=== PATIENT | female | born 1980 | race African-American/Black ===

== ENCOUNTER 2017-03-05 18:58 | Emergency (ER) | payer OTHER ==
[~2017-03-05] VITALS: Ht 177.8 cm; Wt 81.6 kg
--- NOTE | 2017-03-05 18:58 | NUR ---
Patient to [facility] for evaluation. Report given to AYANNA LOCKHART.
[2017-03-05 19:00] VITALS: BP_SYST 136
--- NOTE | 2017-03-05 19:00 | NUR ---
Patient brought to ED by [facility] for medical clearance. CHP reports patient has history of DM. Upon assessment patient presents with a blood sugar of 458. Patient takes metformin and glipizide while at home. Patient a/o x 4. Appears aggitated on arrival. No pain reported. Vital signs within normal limits. Will continue to monitor.
--- NOTE | 2017-03-05 19:05 | NUR ---
ED MD Sullivan at bedside for medical evaluation.
[2017-03-05] MEDS ORDERED: NACL 0.9% 1,000 ML IV ONE ×3 (19:30→21:15)
--- NOTE | 2017-03-05 19:55 | NUR ---
ED MD Heller at bedside assessing patient.
--- NOTE | 2017-03-05 19:55 | NUR ---
Medicated per MD orders. IVF infusing with no s/s of infiltration at this time. Will continue to monitor
[2017-03-05 20:12] LABS: EOSINOPHILS # (AUTO) 0.2 K/uL (0.0-0.4); EOSINOPHILS % (AUTO) 3.3 % (0.0-4.0); HEMOGLOBIN 13.2 g/dL (12.0-16.0); MEAN CORPUSCULAR HEMOGLOBIN 26 pg (27-31); MEAN CORPUSCULAR HGB CONC 32 % (32-36); RED CELL DISTRIBUTION WIDTH 14.8 % (9.0-15.0)
[2017-03-05 20:16] LABS: BASOPHILS # (AUTO) 0.1 K/uL (0.0-0.2); BASOPHILS % (AUTO) 1.5 % (0.0-2.0); HEMATOCRIT 41.2 % (36-48); LYMPHOCYTES # (AUTO) 2.1 K/uL (1.0-5.5); MEAN CORPUSCULAR VOLUME 81 fL (79.0-98.0); MONOCYTES # (AUTO) 0.4 K/uL (0.0-1.0); MONOCYTES % (AUTO) 5.6 % (1.7-9.3); NEUTROPHILS # (AUTO) 4.3 K/uL (1.8-7.7); NEUTROPHILS % (AUTO) 59.6 % (40.0-70.0); PLATELET COUNT (AUTO) 394 K/uL (130-430); RED BLOOD CELL COUNT(AUTO) 5.08 MIL/uL (4.2-6.2); WHITE BLOOD COUNT (AUTO) 7.1 K/uL (4.8-10.8)
[2017-03-05 20:26] LABS: BILIRUBIN,URINE NEGATIVE (NEGATIVE); BLOOD, URINE NEGATIVE (NEGATIVE); CLARITY/URINE CLEAR (CLEAR); COLOR,URINE YELLOW (YELLOW); GLUCOSE,URINE 3+ (NEGATIVE); KETONES,URINE 1+ (NEGATIVE); LEUKOCYTE ESTERASE ,URINE NEGATIVE (NEGATIVE); NITRITE, URINE NEGATIVE (NEGATIVE); PROTEIN URINE NEGATIVE (NEGATIVE); UROBILINOGEN,URINE 0.2 (0.2-1.0)
[2017-03-05 20:29] LABS: CALCIUM 8.8 mg/dL (8.4-11.0); CREATININE 0.93 mg/dL (0.55-1.30); POTASSIUM 3.9 mmol/L (3.5-5.1)
[2017-03-05 20:32] LABS: INR 0.9 (0.8-1.2); PROTHROMBIN TIME 9.8 SECS (9.5-12.5)
[2017-03-05 20:38] LABS: TOTAL BILIRUBIN 0.3 mg/dL (0.0-1.0)
[2017-03-05 20:39] LABS: ALBUMIN 3.9 g/dL (3.4-4.8); AMYLASE 64 U/L (0-100); LIPASE 132 U/L (73-393); TOTAL PROTEIN, SERUM 8.3 g/dL (6.4-8.3)
[2017-03-05 20:40] LABS: BACTERIA,URINE FEW /HPF (None Seen); MUCUS,URINE None Seen /LPF (None Seen); RBC,URINE NONE SEEN /HPF (0-3)
[2017-03-05] MEDS ORDERED: INSULIN REGULAR, HUMAN 10 UNITS/0.1 ML INJ IVP ONE ×2 (21:00)
--- NOTE | 2017-03-05 22:20 | NUR ---
Blood sugar 342
--- NOTE | 2017-03-05 22:29 | NUR ---
Medicated per MD orders. IVF infusing with no s/s of infiltration at this time. Will continue to monitor
--- NOTE | 2017-03-05 22:45 | NUR ---
Ed MD Heller at bedside reassessing patient.
[2017-03-05 22:52] LABS: CANNABINOID, URINE POSITIVE (NEG <=50); METHAMPHETAMINES SCREEN,URINE POSITIVE (NEG <=500); URINE AMPHETAMINE POSITIVE (NEG <=500)
[2017-03-05 22:53] LABS: BARBITURATE, URINE NEGATIVE (NEG <=200); BENZODIAZEPINE, URINE NEGATIVE (NEG <=150); COCAINE, URINE NEGATIVE (NEG <=150); OPIATE, URINE NEGATIVE (NEG <=100); PHENCYCLIDINE SCREEN,URINE NEGATIVE (NEG <=25); UR TRICYCLIC ANTIDEPRESSANTS NEGATIVE (NEG <=300); URINE METHADONE NEGATIVE (NEG <=200); URINE OXYCODONE SCREEN NEGATIVE (NEG <=100); URINE PROPOXYPHENE SCREEN NEGATIVE (NEG <=300)
--- NOTE | 2017-03-05 23:05 | NUR ---
Blood sugar 224
[2017-03-05 23:11] VITALS: BP_SYST 144
--- NOTE | 2017-03-05 23:11 | NUR ---
Patient given written and verbal discharge instructions and verbalizes understanding. ER MD discussed with patient the results and treatment provided. Patient in stable condition. ID arm band removed. IV catheter removed intact and dressing applied, no active bleeding. No Rx given. Patient educated on pain management and to follow up with PMD. Pain Scale 0/10. Opportunity for questions provided and answered. Patient discharged in [facility] custody, ambulatory with handcuffs.
== END 2017-03-05 23:11 ==
LOC: SED 18:58
DX: E11.65 Type 2 diabetes mellitus with hyperglycemia (principal); E86.0 Dehydration
CPT/HCPCS: 36415; 71010; 80053; 80307; 81000; 82150; 83690; 84484; 85025; 85610; 85730; 93005; 96361; 96374; 99285; J1815; J7030

== ENCOUNTER 2017-03-06 03:15 | Emergency (ER) | payer OTHER ==
[~2017-03-06] VITALS: Ht 177.8 cm; Wt 81.6 kg
[2017-03-06 03:15] VITALS: BP_SYST 135
--- NOTE | 2017-03-06 03:15 | NUR ---
Patient to ER bed 4 to gown for evaluation. Side rails up. Report given to AYANNA MIRANDA.
--- NOTE | 2017-03-06 03:20 | NUR ---
Patient brought to ER by law enforcement for medical clearance. Patient was seen last evening in ER and medically cleared. Patient is brought back for evaluation of possible allergic reaction. Patient has swelling to both eyes, no hematoma noted. Patient states that since she left our ER she has not ate or drink anything. AAOx4, unlabored breathing, no respiratory distress noted, C/O pruritus, no signs of acute distress.
--- NOTE | 2017-03-06 03:27 | NUR ---
ER MD Heller at bedside for evaluation
--- NOTE | 2017-03-06 03:39 | NUR ---
Patient refuses to provide urine and refuses I&O catheter. ER MD Heller aware.
[2017-03-06] MEDS ORDERED: DIPHENHYDRAMINE INJ 50 MG/ML VIAL IVP ONE (03:45)
[2017-03-06] MEDS ORDERED: EPINEPHrine JECT 1 MG/10 ML SYR IVP ONE (03:45)
[2017-03-06] MEDS ORDERED: FAMOTIDINE PF 20 MG/2 ML VIAL IVP ONE (03:45)
--- NOTE | 2017-03-06 03:55 | NUR ---
# 22 gauge angiocath placed to left forearm. Use of asceptic technique. Opsite placed over site. Blood return noted. Flushed with 10 cc of normal saline. No evidence of infiltration noted. Patient tolerated well.
--- NOTE | 2017-03-06 04:00 | NUR ---
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 Patient identified x2.
[2017-03-06 04:21] LABS: HEMOGLOBIN 13.2 g/dL (12.0-16.0); RED BLOOD CELL COUNT(AUTO) 5.07 MIL/uL (4.2-6.2); WHITE BLOOD COUNT (AUTO) 8.1 K/uL (4.8-10.8)
[2017-03-06 04:22] LABS: ANION GAP 6 (5-15); CALCIUM 8.1 mg/dL (8.4-11.0); CHLORIDE 105 mmol/L (98-107); CREATININE 0.69 mg/dL (0.55-1.30); GLUCOSE 276 mg/dL (70-99); HEMATOCRIT 40.7 % (36-48); LYMPHOCYTES % (AUTO) 39.3 % (20.5-51.5); MEAN CORPUSCULAR HEMOGLOBIN 26 pg (27-31); MEAN CORPUSCULAR HGB CONC 32 % (32-36); MEAN CORPUSCULAR VOLUME 80 fL (79.0-98.0); NEUTROPHILS % (AUTO) 45.8 % (40.0-70.0); PLATELET COUNT (AUTO) 254 K/uL (130-430); POTASSIUM 3.8 mmol/L (3.5-5.1); RED CELL DISTRIBUTION WIDTH 14.9 % (9.0-15.0); SODIUM SERUM 136 mmol/L (136-145); UREA NITROGEN, BLOOD 8 mg/dL (8-21)
[2017-03-06 04:23] LABS: BASOPHILS # (AUTO) 0.3 K/uL (0.0-0.2); BASOPHILS % (AUTO) 3.1 % (0.0-2.0); EOSINOPHILS # (AUTO) 0.5 K/uL (0.0-0.4); EOSINOPHILS % (AUTO) 5.8 % (0.0-4.0); LYMPHOCYTES # (AUTO) 3.2 K/uL (1.0-5.5); MONOCYTES # (AUTO) 0.5 K/uL (0.0-1.0); NEUTROPHILS # (AUTO) 3.6 K/uL (1.8-7.7)
[2017-03-06 04:26] LABS: ACETAMINOPHEN 10 ug/mL (1-30); ALANINE AMINOTRANSFERASE 16 U/L (12-78); ALBUMIN 3.4 g/dL (3.4-4.8); ASPARTATE AMINOTRANSFERASE 14 U/L (10-37); CREATINE KINASE, TOTAL 159 U/L (26-192); SALICYLATE 1 mg/dL (3-30); TOTAL BILIRUBIN 0.4 mg/dL (0.0-1.0); TOTAL PROTEIN, SERUM 7.4 g/dL (6.4-8.3)
[2017-03-06 04:30] LABS: ALCOHOL, BLOOD < 3 mg/dL (<10); GFR AFRICAN AMERICAN 123 mL/min (>90)
[2017-03-06] MEDS ORDERED: EPINEPHrine 1 MG/ML AMP IM ONE (04:30)
[2017-03-06 04:46] LABS: INR 0.9 (0.8-1.2); PROTHROMBIN TIME 10.1 SECS (9.5-12.5)
--- NOTE | 2017-03-06 05:03 | NUR ---
Facial swelling decreased to left eye, minimal swelling to right eye persists. MD aware.
--- NOTE | 2017-03-06 05:16 | NUR ---
Patient asleep. No signs of acute distress. VS WNL
[2017-03-06 05:50] VITALS: BP_SYST 123
--- NOTE | 2017-03-06 05:50 | NUR ---
Patient given written and verbal discharge instructions and verbalizes understanding. ER MD Heller discussed with patient the results and treatment provided. Patient in stable condition. ID arm band removed. IV catheter removed intact and dressing applied, no active bleeding. Rx of Atarax given. Patient educated on pain management and to follow up with PMD. Pain Scale 0/10. Opportunity for questions provided and answered.
== END 2017-03-06 05:50 | disposition home or self-care (01) ==
LOC: SED 03:15
DX: T78.3XXA Angioneurotic edema, initial encounter (principal); E11.9 Type 2 diabetes mellitus without complications; Z88.0 Allergy status to penicillin
CPT/HCPCS: 36415; 80053; 82550; 85025; 85610; 85730; 96372; 96374; 96375; 99284; G0480; G0481; G0482; J0171; J1200; J3490

== ENCOUNTER 2018-08-01 16:08 | Emergency (ER) | payer MEDICAID, OTHER ==
[~2018-08-01] VITALS: Ht 160 cm; Wt 61.2 kg
[2018-08-01 16:12] VITALS: BP_SYST 127
[2018-08-01 16:15] VITALS: BP_SYST 127
== END 2018-08-01 17:40 | disposition left against medical advice (07) ==
LOC: SED 16:08
DX: M79.10 Myalgia, unspecified site (principal); E11.9 Type 2 diabetes mellitus without complications; R03.0 Elevated blood-pressure reading, without diagnosis of hypertension; Z88.0 Allergy status to penicillin
CPT/HCPCS: 93005; 99283